=== PATIENT | male | born 1985 | race Caucasian/White ===

== ENCOUNTER 2016-12-13 18:48 | Emergency (ER) | payer OTHER ==
[~2016-12-13] VITALS: Ht 203.2 cm; Wt 113.4 kg
[2016-12-13 18:48] VITALS: BP 137/87
[2016-12-13] MEDS ORDERED: CLON-412 PO (19:01)
[2016-12-13] MEDS ORDERED: ADDE20CA PO (19:01)
[2016-12-13] MEDS ORDERED: ATIV1TAB7 PO (19:01)
[2016-12-13] MEDS ORDERED: SERT50TA PO (19:01)
[2016-12-13] MEDS ORDERED: CEPHALEXIN 500 MG CAP PO ONE (19:30)
[2016-12-13] MEDS ORDERED: ACETAMINOPHEN TAB 650MG DOSE (2X325MG) PO ONE (19:30)
[2016-12-13] MEDS ORDERED: MUPIROCIN 2% OINT 22 GM TUBE TOP ONE (19:30)
[2016-12-13] MEDS ORDERED: BACT2OIN2 TOP (19:38)
[2016-12-13] MEDS ORDERED: KEFL500C7 PO (19:38)
== END 2016-12-13 19:59 | disposition home or self-care (01) ==
LOC: M ED 19:50
DX: L73.9 Follicular disorder, unspecified (principal); F41.9 Anxiety disorder, unspecified; Z79.899 Other long term (current) drug therapy

== ENCOUNTER → 2018-04-27 | Outpatient (CLI) | payer OTHER | LOC: M PAIN 15:00 | DX: M47.816 Spondylosis without myelopathy or radiculopathy, lumbar region (principal); M47.817 Spondylosis without myelopathy or radiculopathy, lumbosacral region; F43.10 Post-traumatic stress disorder, unspecified; F41.9 Anxiety disorder, unspecified; F32.9 Major depressive disorder, single episode, unspecified; G43.909 Migraine, unspecified, not intractable, without status migrainosus; F17.210 Nicotine dependence, cigarettes, uncomplicated; Z79.899 Other long term (current) drug therapy; Z87.820 Personal history of traumatic brain injury | CPT/HCPCS: G0463 ==

== ENCOUNTER → 2018-05-11 | Outpatient (CLI) | payer OTHER ==
[~2018-05-11] MED LIST: BUPIVACAINE HCL 0.25% 30 ML VIAL As Ordered; ISOVUE-M 300 61% 15ML VIAL (Q9967) As Ordered; LIDOCAINE 1% SDV INJ 30 ML VIAL As Ordered; TRIAMCINOLONE ACETONIDE SUSP 40 MG/ML VIAL (J3301) As Ordered; diazePAM 5 MG TAB As Ordered; oxyCODONE 5MG TAB As Ordered
== END ==
LOC: M PAIN 11:45
DX: M47.816 Spondylosis without myelopathy or radiculopathy, lumbar region (principal); M47.817 Spondylosis without myelopathy or radiculopathy, lumbosacral region; F43.10 Post-traumatic stress disorder, unspecified; F41.9 Anxiety disorder, unspecified; F32.9 Major depressive disorder, single episode, unspecified; F90.9 Attention-deficit hyperactivity disorder, unspecified type; G43.909 Migraine, unspecified, not intractable, without status migrainosus; F17.210 Nicotine dependence, cigarettes, uncomplicated; Z87.820 Personal history of traumatic brain injury; Z79.899 Other long term (current) drug therapy
CPT/HCPCS: J3301

== ENCOUNTER → 2018-06-18 | Outpatient (CLI) | payer OTHER | LOC: M PAIN 14:45 | DX: M47.816 Spondylosis without myelopathy or radiculopathy, lumbar region (principal); F43.10 Post-traumatic stress disorder, unspecified; F41.9 Anxiety disorder, unspecified; F32.9 Major depressive disorder, single episode, unspecified; G43.909 Migraine, unspecified, not intractable, without status migrainosus; F17.210 Nicotine dependence, cigarettes, uncomplicated; Z79.899 Other long term (current) drug therapy; Z87.820 Personal history of traumatic brain injury | CPT/HCPCS: G0463 ==

== ENCOUNTER → 2018-07-14 | Outpatient (CLI) | payer OTHER ==
[~2018-07-14] MED LIST changes: -TRIAMCINOLONE ACETONIDE SUSP 40 MG/ML VIAL (J3301) As Ordered; -diazePAM 5 MG TAB As Ordered; -oxyCODONE 5MG TAB As Ordered
== END ==
LOC: M PAIN 09:00
DX: G89.29 Other chronic pain (principal); M47.816 Spondylosis without myelopathy or radiculopathy, lumbar region; M47.817 Spondylosis without myelopathy or radiculopathy, lumbosacral region; F43.10 Post-traumatic stress disorder, unspecified; F41.9 Anxiety disorder, unspecified; F32.9 Major depressive disorder, single episode, unspecified; G43.909 Migraine, unspecified, not intractable, without status migrainosus; F17.210 Nicotine dependence, cigarettes, uncomplicated; Z79.899 Other long term (current) drug therapy; Z87.820 Personal history of traumatic brain injury
CPT/HCPCS: Q9967

== ENCOUNTER → 2018-07-26 | Outpatient (CLI) | payer OTHER | LOC: M PAIN 13:45 | DX: M47.816 Spondylosis without myelopathy or radiculopathy, lumbar region (principal); G43.909 Migraine, unspecified, not intractable, without status migrainosus; F32.9 Major depressive disorder, single episode, unspecified; F43.10 Post-traumatic stress disorder, unspecified; F41.9 Anxiety disorder, unspecified; F17.210 Nicotine dependence, cigarettes, uncomplicated; Z79.899 Other long term (current) drug therapy; Z87.820 Personal history of traumatic brain injury | CPT/HCPCS: G0463 ==

== ENCOUNTER 2020-04-04 16:54 | Emergency (ER) | payer OTHER ==
[~2020-04-04 16:54] MED LIST changes: +ADDE20CA3 PO; +ATIV1TAB7 PO; +BACT2OIN10 TOP; -BUPIVACAINE HCL 0.25% 30 ML VIAL As Ordered; +CLON-412 PO; -ISOVUE-M 300 61% 15ML VIAL (Q9967) As Ordered; +KEFL500C17 PO; -LIDOCAINE 1% SDV INJ 30 ML VIAL As Ordered; +SERT-141 PO
[2020-04-04] MEDS ORDERED: PERCOCET 5MG/325MG TAB PO ONE (19:15)
[2020-04-04] MEDS ORDERED: ISOVUE-370 76% 100ML VIAL As Ordered ONE (19:42)
[2020-04-04 19:44] LABS: BASO # 0.1 10^3/uL (0.0-0.2); BASO % 0.3 % (0.0-1.0); EOS # 0.2 10^3/uL (0.0-0.5); EOS % 0.8 % (0.0-3.0); HEMATOCRIT 42.9 % (42.0-52.0); HEMOGLOBIN 14.3 g/dl (13.5-17.5); LYMPH # 1.7 10^3/uL (1.5-5.0); LYMPH % 7.5 % (24.0-44.0); MEAN CORPUSCULAR HEMOGLOBIN 31.7 pg (27.0-33.0); MEAN CORPUSCULAR HGB CONC 33.3 g/dl (32.0-36.5); MEAN CORPUSCULAR VOLUME 95.1 fl (80.0-96.0); MONO # 1.7 10^3/uL (0.0-0.8); MONO % 7.4 % (0.0-5.0); NEUTROPHILS # 18.4 10^3/uL (1.5-8.5); NEUTROPHILS % 82.9 % (36.0-66.0); PLATELET COUNT, AUTOMATED 332 10^3/uL (150-450); RED BLOOD COUNT 4.51 10^6/uL (4.30-6.10); WHITE BLOOD COUNT 22.2 10^3/uL (4.0-10.0)
[2020-04-04 20:02] LABS: ERYTHROCYTE SEDIMENTATION RATE 11 mm/hr (0-15)
--- NOTE | 2020-04-04 20:20 | REPVR ---
PROCEDURE INFORMATION: Exam: CT Abdomen And Pelvis With Contrast Exam date and time: 04/04/2020 7:50 PM Age: 34 years old Clinical indication: Abdominal pain; Other: Pilonidal cyst with track ? to rectum TECHNIQUE: Imaging protocol: Computed tomography of the abdomen and pelvis with intravenous contrast. Radiation optimization: All CT scans at this facility use at least one of these dose optimization techniques: automated exposure control; mA and/or kV adjustment per patient size (includes targeted exams where dose is matched to clinical indication); or iterative reconstruction. Contrast material: ISOVUE 370; Contrast volume: 100 ml; Contrast route: INTRAVENOUS (IV); COMPARISON: No relevant prior studies available. FINDINGS: Liver: There is a diffuse decrease in hepatic parenchymal density, consistent with steatosis. Gallbladder and bile ducts: Normal. No calcified stones. No ductal dilation. Pancreas: Normal. No ductal dilation. Spleen: Normal. No splenomegaly. Adrenals: Normal. No mass. Kidneys and ureters: Normal. No hydronephrosis. Stomach and bowel: Diffuse thickening of the gastric wall likely related to under distention. Appendix: No evidence of appendicitis. Intraperitoneal space: Unremarkable. No free air. No significant fluid collection. Vasculature: Unremarkable. No abdominal aortic aneurysm. Lymph nodes: Unremarkable. No enlarged lymph nodes. Bladder: Unremarkable as visualized. Reproductive: Unremarkable as visualized. Bones/joints: Moderate central spinal stenosis at L2-L3, L3-L4 and L4-L5. Soft tissues: Elongated thick-walled enhancing cystic structure posterior to the mid and lower sacrum within the subcutaneous fat measuring 3.9 x 4.4 x 7 cm consistent with reported history of a pilonidal cyst. Notably there is no communication with the rectum or pelvic bowel. The a cyst is surrounded by inflammatory reaction. IMPRESSION: 1. Pilonidal cyst as described above without communication with the rectum or pelvic bowel loops. 2. There is a diffuse decrease in hepatic parenchymal density, consistent with steatosis. 3. Multilevel spinal stenosis. 4. Otherwise unremarkable. Electronically signed by: Arash Flores On 04/04/2020 20:20:41 PM
[2020-04-04] MEDS ORDERED: LIDOCAINE W/EPINEPHRINE 1% 20ML VIAL SC ONE (20:45)
[2020-04-04] MEDS ORDERED: AUGM875T28 PO (21:09)
[2020-04-04] MEDS ORDERED: PERC5TAB12 PO (21:09)
[2020-04-04] MEDS ORDERED: AUGMENTIN 875 MG TAB PO ONE (21:15)
[2020-04-04] MEDS ORDERED: OXYCODONE/APAP 5MG/325MG(BULK FOR ED) 1 TABLET PO ONE (21:30)
[2020-04-04 21:40] VITALS: BP 123/85
--- NOTE | 2020-04-05 09:45 | ED PDOC ---
Post-Departure Follow-Up sridevi medina and dr jackson faxed formal report ct abd/p for fu Felice Douglas MD Apr 05, 2020 09:45
== END 2020-04-04 21:42 | disposition home or self-care (01) ==
LOC: M ED 16:54
DX: L05.01 Pilonidal cyst with abscess (principal); F41.9 Anxiety disorder, unspecified; F43.10 Post-traumatic stress disorder, unspecified; F17.210 Nicotine dependence, cigarettes, uncomplicated; Z79.899 Other long term (current) drug therapy; Z87.2 Personal history of diseases of the skin and subcutaneous tissue
CPT/HCPCS: 10060; 36415; 74177; 80047; 83605; 85025; 85652; 86140; 87040; 87070; 87076; 99283; Q9967

== ENCOUNTER 2020-04-23 07:10 | Day surgery (SDC) | payer OTHER ==
[~2020-04-23 07:10] MED LIST changes: +AUGM875T28 PO; +LIDOCAINE 2% 100MG/5ML SDV (FOR ANES.) As Ordered ONE; +MIDAZOLAM INJ 2MG/2ML VIAL (J2250 PER 1MG) As Ordered ONE; +PERC5TAB12 PO; +ROCURONIUM BROMIDE 50 MG/5 ML VIAL As Ordered ONE; +ceFAZolin 2 GM/D5W 50 ML IV BAG (J0690 PER 500MG) As Ordered ONE; +ceFAZolin 2 GM/D5W 50 ML IV BAG (J0690 PER 500MG) ONE; +fentaNYL 100 MCG/2 ML INJECTION (J3010) As Ordered ONE; +propofoL 200 MG/20 ML VIAL As Ordered ONE
[2020-04-23] MEDS ORDERED: propofoL 200 MG/20 ML VIAL As Ordered ONE (07:45)
[2020-04-23] MEDS ORDERED: CHLOROPROCAINE PRES. FREE 3% 20ML VIAL As Ordered ONE (07:46)
[2020-04-23] MEDS ORDERED: ONDANSETRON 4MG/2ML VIAL As Ordered ONE (07:56)
[2020-04-23] MEDS ORDERED: ALBUTEROL SULFATE 2.5 MG/0.5 ML INH NEB SOLN ONE (08:31)
[2020-04-23] MEDS ORDERED: ALBUTEROL SULFATE 2.5 MG/0.5 ML INH NEB SOLN As Ordered ONE (08:31)
--- NOTE | 2020-06-28 09:48 | RO ---
Date of Operation: 04/23/2020 PREOPERATIVE DIAGNOSIS: Pilonidal cyst. POSTOPERATIVE DIAGNOSIS: Pilonidal cyst. PROCEDURE PLANNED: Cystectomy. SURGEON: Juan Van DO MICA BUILDER: None. ANESTHESIA: Spinal. ESTIMATED BLOOD LOSS: 5. COMPLICATIONS: None. INDICATIONS FOR PROCEDURE: Patient presents to my office with a pilonidal cyst that has been bothering him for a long period of time and he would like to have it removed. Recommendation was to proceed with pilonidal cystectomy. Risks and benefits of the procedure not limited to, but including bleeding, infection, damage to surrounding structures, need for further surgery, possible regrowth of the cyst were discussed in detail with the patient. Informed consent was obtained and the procedure was planned. DESCRIPTION OF PROCEDURE: Patient was brought back to operating room #4. After sufficient sedation, the presacral area was sterilely prepped and draped. Next, a time-out was done to confirm appropriate patient and appropriate procedure. Following that, an elliptical incision was made around the palpable cyst and sinus tracts using a 15-blade scalpel. Cautery was then used to dissect circumferentially all the way down to the level of the presacral fascia. The cyst was removed in one specimen. Cautery was used to control hemostasis. The wound was irrigated with normal saline. It was then re-examined to make sure hemostasis was fully achieved. The wound was packed with 4 x 4s and gauze covered with tape. ROBSON
== END 2020-04-23 10:00 | disposition home or self-care (01) ==
LOC: M SDC 07:10
PROVIDERS: ATTEND Surgery
DX: L05.91 Pilonidal cyst without abscess (principal); F41.9 Anxiety disorder, unspecified; M19.90 Unspecified osteoarthritis, unspecified site; F32.9 Major depressive disorder, single episode, unspecified; F90.9 Attention-deficit hyperactivity disorder, unspecified type; F43.10 Post-traumatic stress disorder, unspecified; K21.9 Gastro-esophageal reflux disease without esophagitis; M54.5 Low back pain; F17.210 Nicotine dependence, cigarettes, uncomplicated; Z79.899 Other long term (current) drug therapy; Z79.891 Long term (current) use of opiate analgesic
CPT/HCPCS: 11770; 88304; J0690; J2250; J2400; J2405; J3010

== ENCOUNTER 2021-02-08 12:24 | Emergency (ER) | payer OTHER ==
[~2021-02-08] VITALS: Ht 198.1 cm; Wt 124.8 kg
[~2021-02-08 12:24] MED LIST changes: -LIDOCAINE 2% 100MG/5ML SDV (FOR ANES.) As Ordered ONE; -MIDAZOLAM INJ 2MG/2ML VIAL (J2250 PER 1MG) As Ordered ONE; -ROCURONIUM BROMIDE 50 MG/5 ML VIAL As Ordered ONE; -ceFAZolin 2 GM/D5W 50 ML IV BAG (J0690 PER 500MG) As Ordered ONE; -ceFAZolin 2 GM/D5W 50 ML IV BAG (J0690 PER 500MG) ONE; -fentaNYL 100 MCG/2 ML INJECTION (J3010) As Ordered ONE; -propofoL 200 MG/20 ML VIAL As Ordered ONE
[2021-02-08] MEDS ORDERED: CLON0.5T17 PO (12:38)
[2021-02-08] MEDS ORDERED: BRIN1TAB3 PO (12:38)
[2021-02-08] MEDS ORDERED: ABIL1TAB11 PO (12:38)
[2021-02-08] MEDS ORDERED: diphenhydrAMINE 50MG/ML VIAL (J1200) IV ONE (13:45)
[2021-02-08] MEDS ORDERED: NS 1,000 ML IV ONE ×2 (13:45→13:50)
[2021-02-08] MEDS ORDERED: KETOROLAC 30 MG/ML 1ML VIAL IV ONE (13:45)
[2021-02-08 15:27] LABS: BASO # 0.1 10^3/uL (0.0-0.2); BASO % 0.8 % (0.0-1.0); EOS # 0.2 10^3/uL (0.0-0.5); EOS % 2.5 % (0.0-3.0); HEMATOCRIT 43.7 % (42.0-52.0); HEMOGLOBIN 14.7 g/dl (13.5-17.5); LYMPH # 1.7 10^3/uL (1.5-5.0); LYMPH % 23.3 % (24.0-44.0); MEAN CORPUSCULAR HEMOGLOBIN 31.7 pg (27.0-33.0); MEAN CORPUSCULAR HGB CONC 33.6 g/dl (32.0-36.5); MEAN CORPUSCULAR VOLUME 94.4 fl (80.0-96.0); MONO # 0.6 10^3/uL (0.0-0.8); MONO % 8.4 % (2.0-8.0); NEUTROPHILS # 4.7 10^3/uL (1.5-8.5); NEUTROPHILS % 64.7 % (36.0-66.0); PLATELET COUNT, AUTOMATED 297 10^3/uL (150-450); RED BLOOD COUNT 4.63 10^6/uL (4.30-6.10); WHITE BLOOD COUNT 7.2 10^3/uL (4.0-10.0)
[2021-02-08 15:36] LABS: BLOOD UREA NITROGEN 8 MG/DL (7-18); CALCIUM LEVEL 8.2 MG/DL (8.5-10.1); CARBON DIOXIDE LEVEL 31 MEQ/L (21-32); CHLORIDE LEVEL 107 MEQ/L (98-107); CREATININE FOR GFR 0.82 MG/DL (0.70-1.30); GLOMERULAR FILTRATION RATE > 60.0 (>60); GLUCOSE, FASTING 87 MG/DL (70-100); SODIUM LEVEL 142 MEQ/L (136-145)
[2021-02-08 15:37] VITALS: BP 137/80
== END 2021-02-08 15:58 | disposition home or self-care (01) ==
LOC: M ED 12:24
DX: Z11.52 Encounter for screening for COVID-19 (principal); G43.719 Chronic migraine without aura, intractable, without status migrainosus; R79.89 Other specified abnormal findings of blood chemistry; R60.0 Localized edema; F41.9 Anxiety disorder, unspecified; F99 Mental disorder, not otherwise specified; F17.200 Nicotine dependence, unspecified, uncomplicated; Z79.899 Other long term (current) drug therapy
CPT/HCPCS: 80048; 83880; 85025; 87798; 96361; 96374; 96375; 99284; J1200; J1885

== ENCOUNTER 2021-02-18 17:06 | Emergency (ER) | payer OTHER ==
[~2021-02-18] VITALS: Ht 198.1 cm; Wt 126.1 kg
[~2021-02-18 17:06] MED LIST changes: +ABIL1TAB11 PO; +BRIN1TAB3 PO; +CLON0.5T17 PO
[2021-02-18] MEDS ORDERED: LIDOCAINE 2% MDV 20ML VIAL SC ONE (17:55)
[2021-02-18] MEDS ORDERED: KETO10TAB PO (18:01)
[2021-02-18] MEDS ORDERED: BACI500O21 TOP (18:02)
[2021-02-18 18:27] VITALS: BP 118/86
== END 2021-02-18 18:30 | disposition home or self-care (01) ==
LOC: M ED 17:06
DX: S61.412A Laceration without foreign body of left hand, initial encounter (principal); W27.0XXA Contact with workbench tool, initial encounter; Y92.009 Unspecified place in unspecified non-institutional (private) residence as the place of occurrence of the external cause; Y93.89 Activity, other specified; Y99.8 Other external cause status; F17.200 Nicotine dependence, unspecified, uncomplicated; Z79.899 Other long term (current) drug therapy